=== PATIENT | male | born 1970 | race Caucasian/White ===

== ENCOUNTER → 2020-10-29 04:03 | Emergency (ER) | payer OTHER ==
[~2020-10-29 04:03] MED LIST: BUSPAR 10MG10 MG PO; DEPAKOTE500 MG PO; DOXYCYCLINE HY100 MG PO; FLOVENT 110 MC7.9 GM INH; IPRAT-ALBUT 0.5-3 ML NEB; KLONOPIN TAB 00.5 MG PO; LIPITOR20 MG PO; PROTONIX40 MG PO; ROBAXIN 750 MG750 MG PO; STIOLTO RESPIMAT PO; SYNTHROID100 MCG PO; TOPAMAX200 MG PO; VENTOLIN HFA 66.7 GM INH; VISTARIL 50 MG50 MG PO; WELLBUTRIN SR150 MG PO; XYZAL5 MG PO; ZESTRIL10 MG PO; ZYPREXA10 MG PO
== END | disposition expired ==
LOC: ER1 04:03
DX: I46.9 Cardiac arrest, cause unspecified (principal)
CPT/HCPCS: 92950; 94760; 99285; J0171